=== PATIENT | male | born 1955 | race Caucasian/White ===

== ENCOUNTER 2018-01-19 22:36 | Emergency (ER) | payer BC ==
--- NOTE | 2018-01-19 22:46 | PDOC ---
History of Present Illness - General Stated Complaint: SOB Time Seen by Provider: 01/19/18 22:45 - History of Present Illness Initial Comments: 62 yo M with past medical history of HTN, BPD, HLD presenting with shortness of breath. Patient states that he had a partial cystectomy one week ago. During the procedure, air was inserted into the abdomen. Patient feels that the abdominal distention is keeping him from expanding his lungs. He was given an incentive spirometer but has not used it regularly at home. Patient reports that he passed flatus and had a bowel movement on Tuesday, but not since that time. Also endorses nausea especially when he eats too much at once. He has been trying to keep well hydrated, but reports that he has been unsuccessful in doing so. No vomiting. Denies fevers, chills, or chest pain. Past History - Past Medical History Allergies/Adverse Reactions: Allergies Allergy/AdvReac Type Severity Reaction Status Date / Time No Known Allergies Allergy Verified 01/19/18 23:14 Home Medications: Ambulatory Orders Aspirin 81 mg PO Q2D 01/20/18 Finasteride [Proscar] 5 mg PO DAILY 01/20/18 Metoprolol Succinate [Toprol Xl -] 25 mg PO DAILY 01/20/18 Rosuvastatin Calcium [Crestor] 5 mg PO DAILY 01/20/18 Tamsulosin HCl [Flomax] 0.4 mg PO DAILY 01/20/18 Review of Systems - Review of Systems Comments:: Constitutional: no fever, no chills HEENT: no throat pain, no dysphagia Cardiovascular: no chest pain, no palpitations Respiratory: +cough, +shortness of breath Gastrointestinal: +abdominal pain, +nausea, no vomiting, +constipation Genitourinary: no dysuria, +sherman Musculoskeletal: no myalgia, no arthralgia Skin: no rash, no itching Neurologic: no headache, no dizziness *Physical Exam - Physical Exam Comments: General: Awake, alert, and fully oriented, in no acute distress Head: No signs of trauma Eyes: EOMI, sclera anicteric ENT: Moist mucus membranes Neck: Normal ROM, supple Lungs: Lungs clear, Normal breath sounds Cardio: Regular rhythm, S1 and S2 present Abdomen: Distended, hypoactive bowel sounds; Abdominal discomfort upon palpation , No guarding, no rebound, no masses Extremities: Normal range of motion, Distal pulses present SKIN: Warm, Dry, normal turgor Neurologic: Cranial nerves II through XII grossly intact. Normal speech ED Treatment Course - LABORATORY CBC & Chemistry Diagram: 01/20/18 00:05 01/20/18 00:05 Medical Decision Making - Medical Decision Making 62 yo M with past medical history of HTN, BPD, HLD presenting with shortness of breath. 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 Bland; awaiting callback 01/20/18 05:[address] Bland who recommended consulting with patient's urologist. Paged Dr. Hall, patient's urologist 01/20/18 05:[address] Arellano who said he will call back by 7am after consulting with Dr. Hall who is out-of-town 01/20/18 06:[address] Arellano as no call back received. 01/20/18 07:13 Dr. Arellano called and recommended transfer, ER to Inpatient Please send all imaging on CD with patient. Transfer initiated to [facility]. machine load clerk will fax facesheet to [phone] Awaiting call back from transfer center. Patient signed out to Dr. Balderas 01/20/18 07:53 *DC/Admit/Observation/Transfer Diagnosis at time of Disposition: SBO (small bowel obstruction), Pneumonia - Discharge Dispostion Decision to Admit order: Yes - Referrals Referrals: Rosa Rivas MD [Primary Care Provider] - - Patient Instructions - Post Discharge Activity
[2018-01-19 22:59] VITALS: BMI 35.6
[2018-01-19] MEDS ORDERED: SODIUM CHLORIDE 1,000 ML IV STA (23:21)
[2018-01-20 00:23] LABS: BASO % 0.1 % (0-2.0); EOS % 0.2 % (0-4.5); HEMATOCRIT 44.7 % (35.4-49); HEMOGLOBIN 15.5 GM/dL (11.7-16.9); LYMPH % 8.5 % (8-40); MCH 29.3 pg (25.7-33.7); MCHC 34.7 g/dl (32.0-35.9); MEAN CELL VOLUME 84.4 fl (80-96); MEAN PLT VOLUME 8.4 fl (7.5-11.1); MONO % 7.8 % (3.8-10.2); NEUT % 83.4 % (42.8-82.8); PLATELET COUNT 241 K/MM3 (134-434); RDW 13.4 % (11.9-15.9); WHITE BLOOD COUNT 11.2 K/mm3 (4.0-10.0)
[2018-01-20 00:46] LABS: ALK PHOS 60 U/L (45-117); ANION GAP 14 MMOL/L (8-16); BILIRUBIN,TOTAL 1.3 mg/dL (0.2-1); BLOOD UREA NITROGEN 36 mg/dL (7-18); CALCIUM 9.3 mg/dL (8.5-10.1); CHLORIDE 81 mmol/L (98-107); CO2 30 mmol/L (21-32); CREATININE 1.1 mg/dL (0.55-1.3); GLUCOSE,RANDOM 123 mg/dL (74-106); MAGNESIUM 1.8 mg/dL (1.8-2.4); POTASSIUM 3.3 mmol/L (3.5-5.1); SGOT/AST 19 U/L (15-37); SGPT/ALT 18 U/L (13-61); SODIUM 125 mmol/L (136-145); TOT PROT 6.3 g/dl (6.4-8.2)
[2018-01-20 01:04] LABS: URINE APPEARANCE SLCLOUDY; URINE BILIRUBIN NEGATIVE (<2.0 mg/dL); URINE GLUCOSE (UA) NEGATIVE (NEGATIVE); URINE KETONE TRACE (NEGATIVE); URINE LEUK ESTERASE 1+ (NEGATIVE); URINE NITRITE NEGATIVE (NEGATIVE); URINE PROTEIN 2+ (NEGATIVE); URINE UROBILINOGEN NEGATIVE mg/dL (0.2-1.0)
[2018-01-20 01:11] LABS: URINE COLOR DK YELLOW
[2018-01-20 01:13] LABS: EPI CELLS RARE /HPF (FEW); GRANULAR CASTS 35 /lpf; URINE HYALINE CAST 6 /lpf; URINE MUCUS RARE
--- NOTE | 2018-01-20 01:38 | PDOC ---
Attending Attestation - Resident Resident Name: Shahida Alan - ED Attending Attestation I have performed the following: I have examined & evaluated the patient, The case was reviewed & discussed with the resident, I agree w/resident's findings & plan - HPI HPI: 01/20/18 01:35 62-year-old male history of hypertension status post bladder diverticula resection at [place] one week ago presents now with persistent and severe abdominal distention with minimal rectal output, nausea and belching without vomiting, and progressive shortness of breath and dyspnea. Diffuse abdominal discomfort without localized sharp pain, had small nonbloody bowel movement after surgery and has not been able to have rectal output since then. No fevers or chills, worsening abdominal distention. No cough, but complaining of some dyspnea which she attributes to the abdominal distention. Denies any leg swelling or cramping. - Physicial Exam PE: 01/20/18 01:36 Afebrile, heart rate 90s, O2 sat 94% on room air, blood pressure within normal limits No jaundice or pallor Heart is regular slight tachycardia, lungs are clear Abdomen is distended, port sites are clean/dry/intact, soft with diffuse discomfort to palpation but no focal guarding or rebound, bowel sounds are decreased No leg swelling or calf tenderness - Medical Decision Making 01/20/18 01:36 62-year-old male 1 week postop of bladder surgery presents with persistent and worsening abdominal distention and shortness of breath. Abdominal distention likely postoperative ileus, rule out obstruction or collection. Dyspnea could be secondary to increased intra-abdominal pressures, rule out infection and rule out postoperative pulmonary embolus. Labs, urinalysis EKG, chest x-ray Will need CTA of the chest given higher than low risk for PE, will need CT of the abdomen given dilated loops visualized on abdominal x-ray IV fluid rehydration Reassess Heart Score/ECG Review #1 ECG reviewed & interpreted by me at: 23:46 General ECG Interpretation: Sinus Rhythm, Normal Rate (92), Normal Intervals ( qtc 442), No acute ischemic changes
[2018-01-20] MEDS ORDERED: PIPERACILLIN/TAZOB 4.5 GM 4.5 GM in DEXTROSE 5%-WATER 100 ML IVPB ONE ×2 (04:30→12:09)
[2018-01-20] MEDS ORDERED: VANCOMYCIN 1,000 MG in DEXTROSE 5%-WATER - 250 ML IVPB ONE (04:30)
[2018-01-20] MEDS ORDERED: VANCOMYCIN 1 GRAM (PRE-DOCKED) 1,000 MG/250 ML BAG IVPB ONE (04:36)
[2018-01-20] MEDS ORDERED: PIPERACILLIN/TAZOB 4.5 GM 4.5 GM/100 ML BAG IVPB ONE ×2 (04:36→13:47)
--- NOTE | 2018-01-20 05:06 | PN ---
Teaching Attending Note Name of Resident: Nohemi Kinney ATTENDING PHYSICIAN STATEMENT I saw and evaluated the patient. I reviewed the resident's note and discussed the case with the resident. I agree with the resident's findings and plan as documented. SUBJECTIVE: Patient is a 62 year old man with history of hypertension status post bladder diverticular resection at [place] one week ago presents now with persistent and severe abdominal distention with minimal bowel movement, nausea and belching without vomiting, and progressive shortness of breath and dyspnea. Diffuse abdominal discomfort without localized sharp pain. Had small nonbloody bowel movement after surgery and has not been able to have bowel movement since then. No fevers or chills, worsening abdominal distention. No cough, but complaining of some dyspnea which she attributes to the abdominal distention. Denies any leg swelling or cramping. OBJECTIVE: Alert Vital Signs Period Temp Pulse Resp BP Sys/Rod Pulse Ox Last 24 Hr 97.9 F-97.9 F 81-94 17-20 131-142/76-86 94-97 HEENT: No Jaundice, eye redness or discharge, PERRLA, EOMI. Normocephalic, atraumatic. External ears are normal and hearing is grossly intact. No nasal discharge. Neck: Supple, nontender. No palpable adenopathy or thyromegaly. No JVD Chest: Good effort. Clear to auscultation and percussion. Heart: Regular. No S3, rub or murmur Abdomen: Distended, port sites are clean/dry/intact, soft with diffuse discomfort to palpation but no focal guarding or rebound, bowel sounds are decreasedNot distended, soft, nontender and no HSM. No rebound or guarding. Normoactive bowel sounds. Ext: Peripheral pulses intact. No leg edema. Skin: Warm and dry. No petechiae, rash or ecchymosis. Neuro: Alert. Oriented x3. CN 2-12 grossly intact. Sensation grossly intact in all four extremities and DTR are symmetric. ASSESSMENT AND PLAN: 1. Small bowel obstruction - Hypoalbuminemia - Possibly due to combined effects of malnutrition and inflammation associated with comorbid chronic conditions. Will ensure adequate dietary protein intake and also consult vice president business & corporate development. DM - For now, we will hold the home diabetes drugs and implement sliding scale insulin regimen. Provide comprehensive diabetes care with patient teaching and counseling about the importance of euglycemia, eye care and foot care. Tobacco Use We will provide patient all the necessary assistance to facilitate smoking cessation and prescribe Nicotine patch. Will consult nephrology and avoid nephrotoxic agents such as NSAIDS, aminoglycosides, contrast dyes and certain Alternative medicine products. Anemia - Do basic anemia work up including serial stool guaiacs, reticulocyte count and iron studies. Would benefit from Procrit therapy once iron replete. Obesity - Will provide patient all the necessary assistance , counseling and positive reinforcement to facilitate weight loss. Consult vice president business & corporate development. Alcohol abuse - Implement [facility] alcohol withdrawal protocol, fall and aspiration precautions. Treat with thiamine and folic acid and monitor electrolytes (Ca,Mg,K,P). Therapy Site Coordinator patient about abstaining from alcohol and refer to alcohol detox upon discharge. DVT prophylaxis - Heparin 5000u sq tid. Lovenox 40 mg SQ q 24 hours. Advance directives - Full code
[2018-01-20 05:22] LABS: INR 1.25 (0.83-1.09); PROTHROMBIN TIME (PATIENT) 14.8 SEC (9.7-13.0)
[2018-01-20] MEDS ORDERED: LIDOCAINE HCL 2% JELLY (30 ML/TUBE) TP ONE (05:35)
[2018-01-20] MEDS ORDERED: LIDOCAINE HCL 2% JELLY (5 ML/TUBE) ONE (05:36)
[2018-01-20] MEDS ORDERED: TETRACAINE/BENZOCAINE/BUTAMBEN 20 GM SPR TP ONE (07:19)
--- NOTE | 2018-01-20 07:38 | EKG ---
Test Reason : Blood Pressure : / mmHG Vent. Rate : 092 BPM Atrial Rate : 092 BPM P-R Int : 158 ms QRS Dur : 098 ms QT Int : 358 ms P-R-T Axes : 027 031 068 degrees QTc Int : 442 ms POOR DATA QUALITY, INTERPRETATION MAY BE ADVERSELY AFFECTED NORMAL SINUS RHYTHM NONSPECIFIC ST ABNORMALITY ABNORMAL ECG NO PREVIOUS ECGS AVAILABLE Confirmed by LOYD FERMIN MD ([id number]) on 01/20/2018 7:37:56 AM Referred By: Confirmed By:LOYD FERMIN MD
--- NOTE | 2018-01-20 08:11 | PN ---
Teaching Attending Note Name of Resident: Candido Vazquez ATTENDING PHYSICIAN STATEMENT I saw and evaluated the patient. I reviewed the resident's note and discussed the case with the resident. I agree with the resident's findings and plan as documented. SUBJECTIVE: OBJECTIVE: Vital Signs Temperature 98.2 F 01/20/18 06:10 Pulse Rate 94 H 01/20/18 07:31 Respiratory Rate 18 01/20/18 07:31 Blood Pressure 124/66 01/20/18 07:31 O2 Sat by Pulse Oximetry (%) 91 L 01/20/18 07:31 initial Vital Signs Temp Pulse Resp BP Pulse Ox 97.9 F 94 H 20 131/86 94 L 01/19/18 22:44 01/19/18 22:44 01/19/18 22:44 01/19/18 22:44 01/19/18 22:44 General: Awake, alert, and fully oriented, in no acute distress Head: No signs of trauma Eyes: EOMI, sclera anicteric ENT: Moist mucus membranes Neck: Normal ROM, supple Lungs: Lungs clear, Normal breath sounds Cardio: Regular rhythm, S1 and S2 present Abdomen: Distended, hypoactive bowel sounds; Abdominal discomfort upon palpation , No guarding, no rebound, no masses Extremities: Normal range of motion, Distal pulses present SKIN: Warm, Dry, normal turgor Neurologic: Cranial nerves II through XII grossly intact. Normal speech CBCD WBC 11.2 K/mm3 (4.0-10.0) H 01/20/18 00:05 RBC 5.30 M/mm3 (4.00-5.60) 01/20/18 00:05 Hgb 15.5 GM/dL (11.7-16.9) 01/20/18 00:05 Hct 44.7 % (35.4-49) 01/20/18 00:05 MCV 84.4 fl (80-96) 01/20/18 00:05 MCHC 34.7 g/dl (32.0-35.9) 01/20/18 00:05 RDW 13.4 % (11.9-15.9) 01/20/18 00:05 Plt Count 241 K/MM3 (134-434) 01/20/18 00:05 MPV 8.4 fl (7.5-11.1) 01/20/18 00:05 CMP Sodium 125 mmol/L (136-145) L 01/20/18 00:05 Potassium 3.3 mmol/L (3.5-5.1) L 01/20/18 00:05 Chloride 81 mmol/L (98-107) L 01/20/18 00:05 Carbon Dioxide 30 mmol/L (21-32) 01/20/18 00:05 Anion Gap 14 MMOL/L (8-16) 01/20/18 00:05 BUN 36 mg/dL (7-18) H 01/20/18 00:05 Creatinine 1.1 mg/dL (0.55-1.3) 01/20/18 00:05 Creat Clearance w eGFR > 60 (>60) 01/20/18 00:05 Random Glucose 123 mg/dL (74-106) H 01/20/18 00:05 Calcium 9.3 mg/dL (8.5-10.1) 01/20/18 00:05 Total Bilirubin 1.3 mg/dL (0.2-1) H 01/20/18 00:05 AST 19 U/L (15-37) 01/20/18 00:05 ALT 18 U/L (13-61) 01/20/18 00:05 Alkaline Phosphatase 60 U/L (45-117) 01/20/18 00:05 Total Protein 6.3 g/dl (6.4-8.2) L 01/20/18 00:05 Albumin 3.0 g/dl (3.4-5.0) L 01/20/18 00:05 CARDIAC ENZYMES Troponin I < 0.02 ng/ml (0.00-0.05) 01/20/18 00:05 Home Medications Medication Instructions Recorded Aspirin 81 mg PO Q2D 01/20/18 Finasteride [Proscar] 5 mg PO DAILY 01/20/18 Metoprolol Succinate [Toprol Xl -] 25 mg PO DAILY 01/20/18 Rosuvastatin Calcium [Crestor] 5 mg PO DAILY 01/20/18 Tamsulosin HCl [Flomax] 0.4 mg PO DAILY 01/20/18 Top of Form 1 Bottom of Form 1 Final Report CR ABDOMEN FLAT & UPRIGHT Show Printer-Friendly Version Patient Name: Wesley Mazariegos : 1955 ID: [id number] Study Date: 20-Jan-2018 00:15 EXAM#: TYPE/EXAM: RESULT: [id number] RAD/ABDOMEN FLAT UPRIGHT Abdomen: Pneumonia. Pain. Views of the abdomen reveal degenerative changes, right hip replacement, pelvic calcifications and possible suture material with distended small bowel loops in the left abdomen compatible with a developing small bowel obstruction. There is is evidence of old rib trauma, atelectasis at the left base but no sign of a pneumoperitoneum. There is a prominent mediastinum. Correlation recommended Impression: Old skeletal trauma. Left base atelectasis. Small bowel obstruction. Follow-up recommended. CT suggested. Reported By: Venkatesh Pal MD ; 01/20/18 0811 ASSESSMENT AND PLAN: # SBO # Left Lung Atelectasis # Acute Hyponatremia # Hypokalemia #ARF: prerenal ; UA positive for hyaline and granular cast I
--- NOTE | 2018-01-20 09:17 | PDOC ---
*Physical Exam - Vital Signs Last Vital Signs Temp Pulse Resp BP Pulse Ox 98.2 F 91 H 18 119/71 2 L 01/20/18 06:10 01/20/18 08:52 01/20/18 08:52 01/20/18 08:52 01/20/18 08:52 ED Treatment Course - LABORATORY CBC & Chemistry Diagram: 01/20/18 00:05 01/20/18 00:05 - ADDITIONAL ORDERS Additional order review: Laboratory Results 01/20/18 01/20/18 01/20/18 04:56 04:56 04:56 PT with INR 14.80 H INR 1.25 H PTT (Actin FS) 23.6 L Sodium Potassium Chloride Carbon Dioxide Anion Gap BUN Creatinine Creat Clearance w eGFR Random Glucose Calcium Magnesium Total Bilirubin AST ALT Alkaline Phosphatase Troponin I Total Protein Albumin Urine Color Urine Appearance Urine pH Ur Specific Vader Urine Protein Urine Glucose (UA) Urine Ketones Urine Blood Urine Nitrite Urine Bilirubin Urine Urobilinogen Ur Leukocyte Esterase Urine WBC (Auto) Urine RBC (Auto) Ur Epithelial Cells Hyaline Casts Granular Casts Urine Mucus Blood Type A POSITIVE Antibody Screen Negative 01/20/18 01/20/18 01/20/18 00:52 00:05 00:05 PT with INR INR PTT (Actin FS) Sodium 125 L Potassium 3.3 L Chloride 81 L Carbon Dioxide 30 Anion Gap 14 BUN 36 H Creatinine 1.1 Creat Clearance w eGFR > 60 Random Glucose 123 H Calcium 9.3 Magnesium 1.8 Total Bilirubin 1.3 H AST 19 ALT 18 Alkaline Phosphatase 60 Troponin I Cancelled < 0.02 Total Protein 6.3 L Albumin 3.0 L Urine Color Dk yellow Urine Appearance Slcloudy Urine pH 5.0 Ur Specific Vader 1.021 Urine Protein 2+ H Urine Glucose (UA) Negative Urine Ketones Trace H Urine Blood 3+ H Urine Nitrite Negative Urine Bilirubin Negative Urine Urobilinogen Negative Ur Leukocyte Esterase 1+ H Urine WBC (Auto) 33 Urine RBC (Auto) 296 Ur Epithelial Cells Rare Hyaline Casts 6 Granular Casts 35 Urine Mucus Rare Blood Type Antibody Screen 01/20/18 00:05 RBC 5.30 MCV 84.4 MCHC 34.7 RDW 13.4 MPV 8.4 Neutrophils % 83.4 H Lymphocytes % 8.5 Monocytes % 7.8 Eosinophils % 0.2 Basophils % 0.1 - Medications Given in the ED: ED Medications Discontinued Medications Generic Name Dose Route Start Last Admin Trade Name July PRN Reason Stop Dose Admin Benzocaine/Butamben/Tetracaine HCl 1 spray 01/20/18 07:19 01/20/18 08:50 Cetacaine [place] - TP 01/20/18 07:20 1 spray ONCE ONE Administration Sodium Chloride 1,000 mls @ 1,000 mls/hr 01/19/18 23:21 01/19/18 23:00 Normal Saline - IV 01/20/18 00:20 1,000 mls/hr ASDIR STA Administration Vancomycin HCl 1,000 mg/ 250 mls @ 166.667 mls/hr 01/20/18 04:30 01/20/18 05: 01 Dextrose IVPB 01/20/18 05:59 166.667 mls/hr ONCE ONE Administration Protocol Piperacillin Sod/Tazobactam 100 mls @ 200 mls/hr 01/20/18 04:30 01/20/18 05: 01 Sod 4.5 gm/ Dextrose IVPB 01/20/18 04:59 200 mls/hr ONCE ONE Administration Protocol Lidocaine HCl 1 applic 01/20/18 05:35 01/20/18 05:58 Xylocaine 2% Jelly TP 01/20/18 05:36 1 applic ONCE ONE Administration Medical Decision Making - Medical Decision Making 01/20/18 17:[address] Alan. Patient is 62M with history of recent bladder resection here today with SBO. Patient's original plan to be transferred to [facility]. Patient was accepted for transfer, but bed was not available. Second dose of zosyn given. Patient was suctioned after coughing, improved after suctioning. [facility] contacted, no beds were available. Patient admitted to hospitalist via Agustina Quesada. [facility] called, saying bed was available. Transfer paperwork completed. Will transfer. *DC/Admit/Observation/Transfer Diagnosis at time of Disposition: SBO (small bowel obstruction), Pneumonia - Discharge Dispostion Disposition: TRANSFER ACUTE CARE/OTHER HOSP - Referrals Referrals: Rosa Rivas MD [Primary Care Provider] - - Patient Instructions - Post Discharge Activity - Transfer to Acute Care Facility Receiving Facility: [place] Accepting Physician:: Alf
[2018-01-20] MEDS ORDERED: D5-1/2NS+20 MEQ KCL - 20 MEQ/1,000 ML INFUS.BAG IV SCH (17:45)
[2018-01-20 18:28] LABS: ANION GAP 12 MMOL/L (8-16); BLOOD UREA NITROGEN 22 mg/dL (7-18); CALCIUM 8.1 mg/dL (8.5-10.1); CHLORIDE 93 mmol/L (98-107); CO2 27 mmol/L (22-28); CREATININE 0.6 mg/dL (0.55-1.3); GLUCOSE,RANDOM 99 mg/dL (74-106); POTASSIUM 3.1 mmol/L (3.5-5.1); SODIUM 132 mmol/L (136-145)
[2018-01-20 18:41] VITALS: BP 107/67; PULSE 97
[2018-01-20 18:46] VITALS: TEMP 98.9
--- NOTE | 2018-01-20 20:03 | HP ---
CHIEF COMPLAINT: SOB and abdominal distension PCP: Dr. Nini Rivas HISTORY OF PRESENT ILLNESS: 62 year old male with a PMH of HTN, HLD, and BPH presented to the ED with SOB and abdominal distension s/p 1 week partial cystectomy. Since the procedure patient passed flatus and had a small BM after the procedure. He would drink liquids and burp but he felt the liquid was not draining through his system. His abdomen became distended and last night he felt the distension was preventing his lungs from expanding fully and he had difficulty breathing and brought himself to the ED. Denies lightheadedness, syncope, fever, chills, n/v/ d. Upon admission to ED patient had pulse rate in the 90s. Labs notable for WBC 11.2, Na 125, K 3.3, BUN 36, Abdominal CT showed right sided SBO, chest CT showed left lobe opacities possibly r/t asp pna. Patient was given a dose of vancomycin and zosyn and an NG tube was placed. Surgery was consulted and it was decided to have patient transferred to [facility] where he had cystectomy. Patient reports feeling a lot better since abdominal distention has been somewhat relieved by NG tube drainage. 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 Smoking: Former, quit 20 years ago Alcohol: No Drugs: No Family History: Mother: age 94 Father: Hypovolemic Shock, age 76 Allergies No Known Allergies Allergy (Verified 01/19/18 23:14) HOME MEDICATIONS: Home Medications Medication Instructions Recorded Aspirin 81 mg PO Q2D 01/20/18 Finasteride [Proscar] 5 mg PO DAILY 01/20/18 Metoprolol Succinate [Toprol Xl -] 25 mg PO DAILY 01/20/18 Rosuvastatin Calcium [Crestor] 5 mg PO DAILY 01/20/18 Tamsulosin HCl [Flomax] 0.4 mg PO DAILY 01/20/18 REVIEW OF SYSTEMS CONSTITUTIONAL: Absent: fever, chills, diaphoresis, generalized weakness, malaise, loss of appetite, weight change HEENT: Absent: rhinorrhea, nasal congestion, throat pain, throat swelling, difficulty swallowing, mouth swelling, ear pain, eye pain, visual changes CARDIOVASCULAR: Absent: chest pain, syncope, palpitations, irregular heart rate, lightheadedness , peripheral edema RESPIRATORY: (+)shortness of breath Absent: cough, , dyspnea with exertion, orthopnea, wheezing, stridor, hemoptysis GASTROINTESTINAL: (+) abdominal pain, abdominal distension Absent: nausea, vomiting, diarrhea, constipation, melena, hematochezia GENITOURINARY: (+) Frequency Absent: dysuria, urgency, hesitancy, hematuria, flank pain, genital pain MUSCULOSKELETAL: Absent: myalgia, arthralgia, joint swelling, back pain, neck pain SKIN: Absent: rash, itching, pallor HEMATOLOGIC/IMMUNOLOGIC: Absent: easy bleeding, easy bruising, lymphadenopathy, frequent infections ENDOCRINE: Absent: unexplained weight gain, unexplained weight loss, heat intolerance, cold intolerance NEUROLOGIC: Absent: headache, focal weakness or paresthesias, dizziness, unsteady gait, seizure, mental status changes, bladder or bowel incontinence PSYCHIATRIC: Absent: anxiety, depression, suicidal or homicidal ideation, hallucinations. PHYSICAL EXAMINATION Vital Signs - 24 hr 01/19/18 01/20/18 01/20/18 22:44 03:39 05:16 Temperature 97.9 F 97.9 F Pulse Rate 94 H Pulse Rate [ 81 Right Radial] Respiratory 20 17 Rate Blood Pressure 131/86 Blood Pressure 142/76 [Left Arm] Blood Pressure [Right Arm] O2 Sat by Pulse 96 97 97 Oximetry (%) 01/20/18 01/20/18 01/20/18 06:10 07:31 08:52 Temperature 98.2 F Pulse Rate Pulse Rate [ 93 H 94 H 91 H Right Radial] Respiratory 20 18 18 Rate Blood Pressure Blood Pressure 126/71 124/66 119/71 [Left Arm] Blood Pressure [Right Arm] O2 Sat by Pulse 95 91 L 2 L Oximetry (%) 01/20/18 01/20/18 01/20/18 10:00 10:30 11:00 Temperature Pulse Rate Pulse Rate [ 91 H 95 H 95 H Right Radial] Respiratory 18 18 18 Rate Blood Pressure Blood Pressure 124/70 109/64 113/63 [Left Arm] Blood Pressure [Right Arm] O2 Sat by Pulse 95 97 97 Oximetry (%) 01/20/18 01/20/18 01/20/18 16:36 18:40 18:45 Temperature 98.9 F Pulse Rate Pulse Rate [ 93 H 97 H Right Radial] Respiratory 18 18 Rate Blood Pressure Blood Pressure 117/62 [Left Arm] Blood Pressure 107/67 [Right Arm] O2 Sat by Pulse 96 96 Oximetry (%) GENERAL: Awake, alert, and fully oriented, in no acute distress. HEAD: Normal with no signs of trauma. EYES: Pupils equal, round and reactive to light, extraocular movements intact, sclera anicteric, conjunctiva clear. No lid lag. EARS, NOSE, THROAT: +NG tube draining gastric contents, upper denture plate, oropharynx clear without exudates. Moist mucous membranes. NECK: Normal range of motion, supple without lymphadenopathy, JVD, or masses. LUNGS: Breath sounds equal, clear to auscultation bilaterally. No wheezes, and no crackles. No accessory muscle use. HEART: Regular rate and rhythm, normal S1 and S2 without murmur, rub or gallop. ABDOMEN: Soft, distended, diffusely TTP MUSCULOSKELETAL: Normal range of motion at all joints. No bony deformities or tenderness. No CVA tenderness. UPPER EXTREMITIES: 2+ pulses, warm, well-perfused. No cyanosis. No clubbing. No peripheral edema. LOWER EXTREMITIES: 2+ pulses, warm, well-perfused. No calf tenderness. No peripheral edema. NEUROLOGICAL: No facial droop, normal speech. Normal gait. PSYCHIATRIC: Cooperative. Good eye contact. Appropriate mood and affect. SKIN: Warm, dry, normal turgor, no rashes or lesions noted, normal capillary refill. Laboratory Results - last 24 hr 01/20/18 01/20/18 01/20/18 00:05 00:05 00:05 WBC 11.2 H RBC 5.30 Hgb 15.5 Hct 44.7 MCV 84.4 MCH 29.3 MCHC 34.7 RDW 13.4 Plt Count 241 MPV 8.4 Absolute Neuts (auto) 9.3 H Total Counted 100 Neutrophils % 83.4 H Neutrophils % (Manual) 76.0 Band Neutrophils % 3.0 Lymphocytes % 8.5 Lymphocytes % (Manual) 12.0 Monocytes % 7.8 Monocytes % (Manual) 9 Eosinophils % 0.2 Basophils % 0.1 Nucleated RBC % 0 PT with INR INR PTT (Actin FS) Sodium 125 L Potassium 3.3 L Chloride 81 L Carbon Dioxide 30 Anion Gap 14 BUN 36 H Creatinine 1.1 Creat Clearance w eGFR > 60 Random Glucose 123 H Calcium 9.3 Magnesium 1.8 Total Bilirubin 1.3 H AST 19 ALT 18 Alkaline Phosphatase 60 Troponin I < 0.02 Cancelled Total Protein 6.3 L Albumin 3.0 L Urine Color Urine Appearance Urine pH Ur Specific Rock Urine Protein Urine Glucose (UA) Urine Ketones Urine Blood Urine Nitrite Urine Bilirubin Urine Urobilinogen Ur Leukocyte Esterase Urine WBC (Auto) Urine RBC (Auto) Ur Epithelial Cells Hyaline Casts Granular Casts Urine Mucus Blood Type Antibody Screen 01/20/18 01/20/18 01/20/18 00:52 04:56 04:56 WBC RBC Hgb Hct MCV MCH MCHC RDW Plt Count MPV Absolute Neuts (auto) Total Counted Neutrophils % Neutrophils % (Manual) Band Neutrophils % Lymphocytes % Lymphocytes % (Manual) Monocytes % Monocytes % (Manual) Eosinophils % Basophils % Nucleated RBC % PT with INR INR PTT (Actin FS) 23.6 L Sodium Potassium Chloride Carbon Dioxide Anion Gap BUN Creatinine Creat Clearance w eGFR Random Glucose Calcium Magnesium Total Bilirubin AST ALT Alkaline Phosphatase Troponin I Total Protein Albumin Urine Color Dk yellow Urine Appearance Slcloudy Urine pH 5.0 Ur Specific Rock 1.021 Urine Protein 2+ H Urine Glucose (UA) Negative Urine Ketones Trace H Urine Blood 3+ H Urine Nitrite Negative Urine Bilirubin Negative Urine Urobilinogen Negative Ur Leukocyte Esterase 1+ H Urine WBC (Auto) 33 Urine RBC (Auto) 296 Ur Epithelial Cells Rare Hyaline Casts 6 Granular Casts 35 Urine Mucus Rare Blood Type A POSITIVE Antibody Screen Negative 01/20/18 01/20/18 04:56 17:51 WBC RBC Hgb Hct MCV MCH MCHC RDW Plt Count MPV Absolute Neuts (auto) Total Counted Neutrophils % Neutrophils % (Manual) Band Neutrophils % Lymphocytes % Lymphocytes % (Manual) Monocytes % Monocytes % (Manual) Eosinophils % Basophils % Nucleated RBC % PT with INR 14.80 H INR 1.25 H PTT (Actin FS) Sodium 132 L Potassium 3.1 L Chloride 93 L Carbon Dioxide 27 Anion Gap 12 BUN 22 H Creatinine 0.6 Creat Clearance w eGFR > 60 Random Glucose 99 Calcium 8.1 L Magnesium Total Bilirubin AST ALT Alkaline Phosphatase Troponin I Total Protein Albumin Urine Color Urine Appearance Urine pH Ur Specific Rock Urine Protein Urine Glucose (UA) Urine Ketones Urine Blood Urine Nitrite Urine Bilirubin Urine Urobilinogen Ur Leukocyte Esterase Urine WBC (Auto) Urine RBC (Auto) Ur Epithelial Cells Hyaline Casts Granular Casts Urine Mucus Blood Type Antibody Screen EKG NSR rate 92 QTc [address] abdomen 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 Patient to be admitted, but then transferred to center where he had cystectomy for surgical correction of SBO. Small bowel obstruction -Surgeon Dr. Escudero recommended consulting urologist Dr. Hall who performed cystectomy. -Patient to be transferred to [facility] where he had procedure -NG tube -NPO HTN -Metoprolol Succinate 25 mg daily HLD -Rosuvastatin 5 mg daily BPH -Finasteride 5 mg daily Prophylaxis -DVT: No chemical prophylaxis in anticipation of surgery. FEN -D5 1/2 NS @ 100cc/hr -Replenish lytes as needed -NPO FULL Code Disp: Patient to be transferred to [facility] where he had partial cystectomy Visit type - Emergency Visit Emergency Visit: Yes Care time: The patient presented to the Emergency Department on the above date and was hospitalized for further evaluation of their emergent condition. - New Patient This patient is new to me today: Yes Date on this admission: 01/20/18 - Critical Care Critical Care patient: No
[2018-01-21] MEDS ORDERED: FINASTERIDE 5 MG TABLET (FP) PO SCH (10:00)
[2018-01-21] MEDS ORDERED: metoPROLOL SUCCINATE 25 MG TAB.SR.24H (FP) PO SCH (10:00)
[2018-01-21] MEDS ORDERED: ROSUVASTATIN CA 5 MG TABLET (FP) PO SCH (10:00)
[2018-01-21] MEDS ORDERED: TAMSULOSIN HCL 0.4 MG CAP PO SCH (10:00)
[2018-01-22] MEDS ORDERED: ASPIRIN 81 MG CHEWABLE TABLETS PO SCH (10:00)
== END 2018-01-20 19:00 | disposition short-term general hospital (02) ==
LOC: JER 22:36
PROC: 0D9670Z Drainage of Stomach with Drainage Device, Via Natural or Artificial Opening (ICD-10-PCS; principal; 2018-01-19)
PROC: 3E03329 Introduction of Other Anti-infective into Peripheral Vein, Percutaneous Approach (ICD-10-PCS; 2018-01-19)
PROC: 3E03329 Introduction of Other Anti-infective into Peripheral Vein, Percutaneous Approach (ICD-10-PCS; 2018-01-19)
DX: K91.30 Postprocedural intestinal obstruction, unspecified as to partial versus complete (principal); J18.9 Pneumonia, unspecified organism; Z98.890 Other specified postprocedural states; I10 Essential (primary) hypertension; E78.5 Hyperlipidemia, unspecified; F31.9 Bipolar disorder, unspecified; N40.0 Benign prostatic hyperplasia without lower urinary tract symptoms
CPT/HCPCS: 36415; 71045-TC-FY; 71275-TC; 74019-TC-FY; 74177-TC; 80048; 80053; 81003; 81015; 83735; 84484; 85025; 85610; 85730; 86850; 86900; 86901; 87040; 87086; 93005; 93010; 99285-25; J7030